=== PATIENT | female | born 1995 | race Caucasian/White ===

== ENCOUNTER 2017-03-31 12:15 | Emergency (ER) | payer OTHER ==
--- NOTE | 2017-03-31 12:57 | ED PDOC ---
HPI: Hypertension/Hypotension Time Seen by Provider: 03/31/17 12:32 Chief Complaint (Nursing): High Blood Pressure Chief Complaint (Provider): Hypertension, epistaxis History Per: Patient History/Exam Limitations: no limitations Onset/Duration Of Symptoms: Hrs Current Symptoms Are (Timing): Still Present Additional Complaint(s): The patient is a a21yo female, possible hx of hypertension, presents to the ED for evaluation of intermittent episodes of elevated blood pressure present for the past two years. Patient reports she had an episode of epistaxis earlier today, prompting her visit. She denies any headache, dizziness, chest pain or shortness of breath. Patient currently offers no additional medical complaints. Past Medical History Reviewed: Historical Data, Nursing Documentation, Vital Signs Vital Signs: Last Vital Signs Temp 98.0 F 03/31/17 12:24 Pulse 80 03/31/17 12:38 Resp 16 03/31/17 12:24 BP 129/84 03/31/17 12:38 Pulse Ox 99 03/31/17 12:24 - Medical History PMH: Bronchitis, HTN Denies: Chronic Kidney Disease - Family History Family History: States: Hypertension - Home Medications Home Medications: Ambulatory Orders Medication Instructions Recorded Ibuprofen 600 mg PO Q8H PRN #60 tab 08/07/15 amLODIPine [Norvasc] 5 mg PO DAILY #30 tab 03/31/17 - Allergies Allergies/Adverse Reactions: Allergies Allergy/AdvReac Type Severity Reaction Status Date / Time benzoyl peroxide Allergy RASH Verified 03/31/17 12:24 Review of Systems ROS Statement: Except As Marked, All Systems Reviewed And Found Negative ENT: Positive for: Nose Discharge (epistaxis now resolved) Cardiovascular: Negative for: Light Headedness Neurological: Negative for: Dizziness Physical Exam - Reviewed Nursing Documentation Reviewed: Yes Vital Signs Reviewed: Yes - Physical Exam Appears: Positive for: Well, Non-toxic, No Acute Distress Head Exam: Positive for: ATRAUMATIC, NORMAL INSPECTION, NORMOCEPHALIC Skin: Positive for: Normal Color, Warm, DRY Eye Exam: Positive for: EOMI, Normal appearance, PERRL ENT: Positive for: Normal ENT Inspection. Negative for: Sinus Pain/Drainage Neck: Positive for: Normal, Supple Cardiovascular/Chest: Positive for: Regular Rate, Rhythm Respiratory: Positive for: Normal Breath Sounds. Negative for: Respiratory Distress Neurologic/Psych: Positive for: Alert, Oriented. Negative for: Motor/Sensory Deficits - Laboratory Results Result Diagrams: 03/31/17 13:15 03/31/17 13:15 - ECG O2 Sat by Pulse Oximetry: 99 (RA) Pulse Ox Interpretation: Normal Medical Decision Making Medical Decision Making: Time: 1245 Impression: Elevated blood pressure, epistaxis Plan: -- Labs -- EKG Reassess Scribe Attestation: Documented by Gabby Tolbert acting as a scribe for Immanuel Rowe MD. Provider Attestation: All medical record entries made by the Scribe were at my direction and personally dictated by me. I have reviewed the chart and agree that the record accurately reflects my personal performance of the history, physical exam, medical decision making, and the department course for this patient. I have also personally directed, reviewed, and agree with the discharge instructions and disposition. Disposition - Clinical Impression Clinical Impression: Hypertension - Patient ED Disposition Is Patient to be Admitted: No - Disposition Referrals: [facility] [Outside] Disposition: Routine/Home Disposition Time: 14:09 Condition: FAIR Prescriptions: amLODIPine [Norvasc] 5 mg PO DAILY #30 tab Instructions: Hypertension (ED) Forms: [facility] ([place])
[2017-03-31 13:33] LABS: BASO # 0.1 K/uL (0.0-0.2); BASO % 1.1 % (0.0-2.0); EOS # 0.1 K/uL (0.0-0.7); EOS % 1.9 % (0.0-4.0); HEMOGLOBIN 14.2 g/dL (12.0-16.0); LYMPH # 2.1 K/uL (1.0-4.3); LYMPH % 28.7 % (20.0-40.0); MEAN CELL VOLUME 87.6 fl (81.0-99.0); MEAN CORPUSCULAR HEMOGLOBIN 30.7 pg (27.0-31.0); MEAN CORPUSCULAR HGB CONC 35.1 g/dL (33.0-37.0); MEAN PLATELET VOLUME 8.1 fl (7.2-11.7); MONO # 0.5 K/uL (0.0-0.8); MONO % 6.5 % (0.0-10.0); NEUT # 4.6 K/uL (1.8-7.0); NEUT % 61.8 % (50.0-75.0); RBC 4.62 Mil/uL (3.80-5.20); RED CELL DISTRIBUTION WIDTH 12.9 % (11.5-14.5); WHITE BLOOD COUNT 7.4 K/uL (4.8-10.8)
[2017-03-31 13:46] LABS: ALB/GLOB RATIO 1.3 (1.0-2.1); ALBUMIN 4.6 g/dL (3.5-5.0); ALT/SGPT 23 U/L (9-52); AST/SGOT 22 U/L (14-36); BLOOD UREA NITROGEN 11 mg/dl (7-17); CALCIUM 9.8 mg/dL (8.4-10.2); GFR AFRICAN-AMERICAN > 60; GFR NON-AFRICAN AMERICAN > 60
[2017-03-31 13:59] VITALS: RESP 18
[2017-03-31 14:03] LABS: T4 13.8 ug/dl (5.5-11.0)
[2017-03-31 14:15] VITALS: BP 113/68; PULSE 79; TEMP 98; O2SAT 100
[2017-03-31 14:17] LABS: T3 1.26 nmol/L (1.49-2.60)
--- NOTE | 2017-04-01 08:07 | CARD ---
APPROVED REPORT EKG Measurement Heart [id number] <Conclusion> Normal sinus rhythm with sinus arrhythmia Normal ECG
== END 2017-03-31 14:15 | disposition home or self-care (01) ==
LOC: H.ER 12:15
DX: I10 Essential (primary) hypertension (principal); R04.0 Epistaxis

== ENCOUNTER 2017-11-08 03:51 | Emergency (ER) | payer OTHER ==
[2017-11-08 04:25] VITALS: BMI 31.4
[2017-11-08] MEDS ORDERED: Sodium Chloride 0.9% 1,000 ML IV STA (04:29)
[2017-11-08] MEDS ORDERED: DiphenhydrAMINE 50 mg/ml Inj IV STA (04:29)
[2017-11-08 04:33] VITALS: BP 145/82; PULSE 91; RESP 16; TEMP 98.6; O2SAT 97
[2017-11-08 04:55] LABS: BASO # 0.1 K/uL (0.0-0.2); BASO % 0.7 % (0.0-2.0); EOS # 0.2 K/uL (0.0-0.7); EOS % 2.1 % (0.0-4.0); HEMOGLOBIN 13.2 g/dL (12.0-16.0); LYMPH # 2.1 K/uL (1.0-4.3); LYMPH % 23.8 % (20.0-40.0); MEAN CELL VOLUME 89.5 fl (81.0-99.0); MEAN CORPUSCULAR HEMOGLOBIN 30.8 pg (27.0-31.0); MEAN CORPUSCULAR HGB CONC 34.4 g/dL (33.0-37.0); MEAN PLATELET VOLUME 8.2 fl (7.2-11.7); MONO # 0.6 K/uL (0.0-0.8); MONO % 7.1 % (0.0-10.0); NEUT # 5.8 K/uL (1.8-7.0); NEUT % 66.3 % (50.0-75.0); NRBC % 0.1 % (0.0-0.0); RBC 4.27 Mil/uL (3.80-5.20); RED CELL DISTRIBUTION WIDTH 12.6 % (11.5-14.5); WHITE BLOOD COUNT 8.7 K/uL (4.8-10.8)
[2017-11-08 05:06] LABS: ALB/GLOB RATIO 1.2 (1.0-2.1); ALBUMIN 4.4 g/dL (3.5-5.0); ALT/SGPT 24 U/L (9-52); AST/SGOT 21 U/L (14-36); BLOOD UREA NITROGEN 13 mg/dl (7-17); CALCIUM 9.4 mg/dL (8.4-10.2); GFR AFRICAN-AMERICAN > 60; GFR NON-AFRICAN AMERICAN > 60
--- NOTE | 2017-11-08 05:22 | ED PDOC ---
HPI: Skin/Bite Injury Time Seen by Provider: 11/08/17 04:13 Chief Complaint (Nursing): Abnormal Skin Integrity Chief Complaint (Provider): Abnormal Skin Integrity History Per: Patient History/Exam Limitations: no limitations Additional Complaint(s): 22 y/o [place] female with past medical history of acne and hypertension presents to the ED for evaluation of possible allergic reaction. States that a week ago she started using retinol and clindamycin wipes for acne. Shortly after that she had itching, neck swelling and redness. She also had some shortness of breath due to feeling anxious. PMD: William Prieto MD Past Medical History Reviewed: Historical Data, Nursing Documentation, Vital Signs Vital Signs: Last Vital Signs Temp 98.6 F 11/08/17 04:21 Pulse 91 H 11/08/17 04:21 Resp 16 11/08/17 04:21 BP 145/82 11/08/17 04:21 Pulse Ox 97 11/08/17 06:23 - Medical History PMH: Bronchitis, HTN Denies: Chronic Kidney Disease Other PMH: Acne - Surgical History Surgical History: No Surg Hx - Family History Family History: States: Hypertension - Social History Current smoker - smoking cessation education provided: No Alcohol: None Drugs: Denies - Home Medications Home Medications: Ambulatory Orders Medication Instructions Recorded Ibuprofen 600 mg PO Q8H PRN #60 tab 08/07/15 amLODIPine [Norvasc] 5 mg PO DAILY #30 tab 03/31/17 Cetirizine HCl [Zyrtec] 10 mg PO QAM #10 capsule 11/08/17 Famotidine [Pepcid] 20 mg PO Q12 #14 tab 11/08/17 predniSONE [predniSONE Tab] 60 mg PO QAM #12 tab 11/08/17 - Allergies Allergies/Adverse Reactions: Allergies Allergy/AdvReac Type Severity Reaction Status Date / Time benzoyl peroxide Allergy RASH Verified 03/31/17 12:24 Review of Systems ROS Statement: Except As Marked, All Systems Reviewed And Found Negative (As per HPI, otherwise negative) Skin: Positive for: Other (Itchiness and swelling) Physical Exam - Reviewed Nursing Documentation Reviewed: Yes Vital Signs Reviewed: Yes - Physical Exam Appears: Positive for: Well, Non-toxic, No Acute Distress Head Exam: Positive for: ATRAUMATIC, NORMAL INSPECTION, NORMOCEPHALIC Skin: Positive for: Normal Color, Warm, Dry, Rash (Urticarial rash noted on neck ; no angioedema noted) Eye Exam: Positive for: EOMI, Normal appearance, PERRL ENT: Positive for: Normal ENT Inspection Neck: Positive for: Normal, Painless ROM, Supple Cardiovascular/Chest: Positive for: Regular Rate, Rhythm. Negative for: Murmur Respiratory: Positive for: Normal Breath Sounds. Negative for: Accessory Muscle Use, Respiratory Distress Gastrointestinal/Abdominal: Positive for: Normal Exam, Bowel Sounds, Soft. Negative for: Tenderness Back: Positive for: Normal Inspection Extremity: Positive for: Normal ROM. Negative for: Deformity Neurologic/Psych: Positive for: Alert, Oriented (x3) - Laboratory Results Result Diagrams: 11/08/17 04:50 11/08/17 04:50 - ECG O2 Sat by Pulse Oximetry: 97 (RA) Pulse Ox Interpretation: Normal - Critical Care Total Time (In Min): 30 Medical Decision Making Medical Decision Making: Time: 04:29 Initial Impression: 22 y/o [place] female with contact dermatis Plan: CBC w/ differential Benadryl 50mg IV Famotidine 40mg iV Methylprednisolone 125mg IVP Sodium chloride 1L IV Heplock Insertion Reevaluation Time: 06:14 -- Labs reviewed and no clinically significant abnormalities observed --Patient showed improvement in symptoms and is medically stable for discharge home --Patient was also prescribed Allowash and unspecified antibiotic by her brand activation manager --Patient was instructed to discontinue all medications and follow up with brand activation manager in 2-3 days Clinical Impression: Allergic reaction Scribe Attestation: Documented by Aurelia Penn, acting as a scribe for Lewis Elmore MD. MD S[employer] Attestation: All medical record entries made by the Scribe were at my direction and personally dictated by me. I have reviewed the chart and agree that the record accurately reflects my personal performance of the history, physical exam, medical decision making, and the department course for this patient. I have also personally directed, reviewed, and agree with the discharge instructions and disposition. Disposition - Clinical Impression Clinical Impression: Allergic reaction - Disposition Disposition: Routine/Home Disposition Time: 06:00 Condition: STABLE Additional Instructions: Discontinue use of Cleocin and RetinA Follow up with your Cable Rigger in 2 days Prescriptions: Cetirizine HCl [Zyrtec] 10 mg PO QAM #10 capsule Famotidine [Pepcid] 20 mg PO Q12 #14 tab predniSONE [predniSONE Tab] 60 mg PO QAM #12 tab Instructions: Drug Allergy Forms: [facility] (N[place]ali)
== END 2017-11-08 06:37 | disposition home or self-care (01) ==
LOC: H.ER 03:51
DX: T78.40XA Allergy, unspecified, initial encounter (principal); I10 Essential (primary) hypertension; L70.9 Acne, unspecified
CPT/HCPCS: 80053; 85025; 96361; 96374; 96375; 99282; J1200; J2930; J7040